=== PATIENT | male | born 1990 | race Caucasian/White ===

== ENCOUNTER 2021-03-02 16:14 | Emergency (ER) | payer OTHER ==
[~2021-03-02] VITALS: Ht 177.8 cm; Wt 74.8 kg
[2021-03-02] MEDS ORDERED: BACTRIM DS TAB1 EAC1 PO (16:45)
[2021-03-02] MEDS ORDERED: PERIDEX 0.12%473 M1 PO (16:45)
[2021-03-02] MEDS ORDERED: CENTANY30 GM TOP (16:46)
[2021-03-02 17:00] VITALS: BP 138/78
== END 2021-03-02 17:00 | disposition home or self-care (01) ==
LOC: M.ERS 16:14
DX: S00.83XA Contusion of other part of head, initial encounter (principal); L01.00 Impetigo, unspecified; A49.02 Methicillin resistant Staphylococcus aureus infection, unspecified site; W18.30XA Fall on same level, unspecified, initial encounter; Y93.39 Activity, other involving climbing, rappelling and jumping off; Y92.89 Other specified places as the place of occurrence of the external cause; Y99.9 Unspecified external cause status

== ENCOUNTER 2021-04-13 14:51 | Emergency (ER) | payer OTHER ==
[~2021-04-13] VITALS: Ht 177.8 cm; Wt 72.6 kg
[~2021-04-13 14:51] MED LIST: BACTRIM DS TAB1 EAC1 PO; CENTANY30 GM TOP; PERIDEX 0.12%473 M1 PO
[2021-04-13] MEDS ORDERED: BACTRIM DS TAB1 EAC1 PO (15:48)
[2021-04-13 15:56] VITALS: BP 124/88
== END 2021-04-13 15:58 | disposition home or self-care (01) ==
LOC: M.ERS 14:51
DX: L03.113 Cellulitis of right upper limb (principal); A49.02 Methicillin resistant Staphylococcus aureus infection, unspecified site